=== PATIENT | female | born 1960 | race Caucasian/White ===

== ENCOUNTER 2019-05-25 22:04 | Inpatient (IN) | payer OTHER | END 2019-05-26 16:50 | disposition home or self-care (01) | LOC: JERBED 05-26 05:39 → JER 22:04 ==

== ENCOUNTER 2019-06-09 08:44 | Day surgery (SDC) | payer OTHER ==
[2019-06-08 11:58] VITALS: BMI 32.5
--- NOTE | 2019-06-09 11:08 | HP ---
History & Physical Update - History History: No Change - Physical Physical: No Change - Assessment Assessment: No Change - Plan Plan: No Change
--- NOTE | 2019-06-09 11:10 | OP ---
Operative Note - Note: Operative Date: 06/09/19 Pre-Operative Diagnosis: L ureteral calculus Operation: L ureteroscopic laser lithotripsys and L JJ stent change Post-Operative Diagnosis: Same as Pre-op Surgeon: Brennan Parikh Anesthesiologist/DIRECT SUPPORT STAFF MEMBER: Colt Villalpando Anesthesia: General Specimens Removed: L JJ stent, L ureteral calculi Estimated Blood Loss (mls): 0 Drains & Tubes with Location: 6 fr 22 cm L JJ stent Operative Report Dictated: Yes
[2019-06-09] MEDS ORDERED: MIDAZOLAM HCL 2 MG/2 ML SINGLE DOSE VIAL ONE (12:37)
[2019-06-09] MEDS ORDERED: PROPOFOL 20 ML ONE ×4 (12:45→12:46)
[2019-06-09] MEDS ORDERED: ceFAZolin SODIUM 1 GM VIAL IVPB ONE (12:54)
[2019-06-09] MEDS ORDERED: KETOROLAC TROMETHAMINE 30 MG/1 ML VIAL ONE (13:00)
[2019-06-09] MEDS ORDERED: ceFAZolin SODIUM 1 GM VIAL ONE ×2 (13:01)
[2019-06-09] MEDS ORDERED: DEXAMETHASONE SOD PHOSPHATE 4 MG/1 ML VIAL ONE (13:01)
[2019-06-09] MEDS ORDERED: LIDOCAINE HCL 2% 100 MG/5 ML DISP.SYRIN ONE (13:14)
[2019-06-09] MEDS ORDERED: LIDOCAINE HCL 2% JELLY (5 ML/TUBE) ONE (13:17)
[2019-06-09] MEDS ORDERED: LIDOCAINE HCL 2% JELLY 10 ML CARTRIDGE ONE (13:18)
[2019-06-09] MEDS ORDERED: PROMETHAZINE HCL 25 MG/1 ML VIAL IVPB PRN (13:29)
[2019-06-09] MEDS ORDERED: oxyCODONE HCL 5 MG TABLET PO PRN (13:29)
[2019-06-09] MEDS ORDERED: ONDANSETRON 4 MG/2 ML VIAL IVPUSH PRN (13:29)
[2019-06-09] MEDS ORDERED: PROMETHAZINE HCL 25 MG/1 ML VIAL ONE (13:32)
[2019-06-09] MEDS ORDERED: PROMETHAZINE HCL 25 MG/1 ML VIAL IVPB ONE (13:35)
--- NOTE | 2019-06-09 14:07 | OP ---
DATE OF OPERATION: 06/09/2019 PREOPERATIVE DIAGNOSIS: Left ureteral calculus. POSTOPERATIVE DIAGNOSIS: Left ureteral calculus. PROCEDURE: Left ureteroscopic laser lithotripsy, left double-J stent change. SURGEON: Brennan Kelly M.D. SILO WORKER: None. ANESTHESIA: General via laryngeal mask. ANESTHESIOLOGIST: Colt Villalpando M.D. SPECIMENS: Left ureteral calculi. CULTURES: None. DRAINS: A 6-Portuguese 22 cm left double-J stent. ESTIMATED BLOOD LOSS: None. COMPLICATIONS: None. PROCEDURE: Patient was brought into the operating room and placed on the operating room table in the supine position. After the administration of general anesthesia via laryngeal mask, intravenous antibiotics were administered. Sequential compression devices were placed. The patient was placed in dorsal lithotomy position. The vagina and perineum were prepped and draped in the usual sterile manner. A 22-Portuguese cystoscope was inserted into the bladder with the obturator in place. The obturator was removed, urine was evacuated. The 30-degree telescope was inserted and cystoscopy was performed. This demonstrated no tumors, stones, or inflammation. Both ureteral orifices were in their usual location with the left double-J stent in the left ureteral orifice and good position. Left double-J stent was grasped at its tip, brought to the urethral meatus, cannulated with the 0.038 guidewire, which was advanced to the level of the left renal pelvis under fluoroscopic guidance. Double-J stent was removed and sent to Pathology as specimen. Now the semi-rigid ureteroscope was inserted alongside the guidewire to the level of the distal ureter where 5 mm stone was visualized. The 365 micron laser fiber was inserted and laser lithotripsy was done until the stone was fragmented into small pieces. The fragments were basketed and removed. The retrograde pyelogram was done demonstrated no filling defects, no hydronephrosis, no extravasation of contrast. The entire course of the ureter was inspected, no additional stones were seen. The cystoscope was back loaded and the 6-Portuguese 22 cm left double-J stent was inserted over the guidewire under direct visual and fluoroscopic guidance leaving 1 coil in the renal pelvis, and 1 coil in the bladder. The stent was secured to the thigh with a suture and a Tegaderm. She tolerated the procedure well, was awoken from anesthesia in the operating room and transferred to the recovery room in a stable condition. BRENNAN KELLY M.D. [id number]
[2019-06-09 15:39] VITALS: TEMP 97.9
[2019-06-09 16:48] VITALS: BP 124/73; PULSE 87
--- NOTE | 2019-06-20 16:03 | PATH ---
Surgical Pathology Report Patient Name: LISA JONES [facility]. Rec. #: [id number] /Age/Gender: 1960 (Age: 58) / F Account: [id number] Location: [facility] SURGICAL Taken: 06/09/2019 Received: 06/09/2019 Reported: 06/20/2019 Physicians: Brennan Parikh M.D. Specimen(s) Received A: LEFT URETERAL STONE B: OLD STENT Clinical History Calculus of ureter Final Diagnosis A. LEFT URETERAL STONE, REMOVAL: CALCULUS/STONE, DESCRIBED (GROSS EXAMINATION ONLY). B. OLD STENT, REMOVAL: STENT, DESCRIBED (GROSS EXAMINATION ONLY). Electronically Signed Viktoria Tapia M.D. Gross Description A. received without fixative, labeled "left ureteral stone" are two galindo-black stones, each up to 0.3 cm in greatest dimension. For gross examination only. B. received without fixative, labeled "old stent" is a 35 cm long portion of stent with a diameter of 0.2 cm. For gross examination only. AE/06/20/2019 ebram/06/20/2019
== END 2019-06-09 16:25 | disposition home or self-care (01) ==
LOC: JASU-SURG 08:44
PROVIDERS: ATTEND Urology
PROC: 0TF78ZZ Fragmentation in Left Ureter, Via Natural or Artificial Opening Endoscopic (ICD-10-PCS; principal; 2019-06-09 11:00)
PROC: 0T778DZ Dilation of Left Ureter with Intraluminal Device, Via Natural or Artificial Opening Endoscopic (ICD-10-PCS; 2019-06-09 11:00)
DX: N20.1 Calculus of ureter (principal)
CPT/HCPCS: 76000-TC-FY; 88300-TC; 94760